=== PATIENT | female | born 1975 | race Hispanic/Latino ===

== ENCOUNTER 2020-12-24 07:47 | Outpatient (CLI) | payer BC | END 2020-12-24 07:48 | disposition home or self-care (01) | LOC: CSHULT 07:47 | PROVIDERS: ATTEND Family Medicine | DX: R10.84 Generalized abdominal pain (principal); N83.201 Unspecified ovarian cyst, right side; N88.8 Other specified noninflammatory disorders of cervix uteri; N28.89 Other specified disorders of kidney and ureter | CPT/HCPCS: 76856; 93975 ==